=== PATIENT | male | born 1970 | race Two or more races ===

== ENCOUNTER → 2020-12-22 | Outpatient (CLI) | payer OTHER ==
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
== END | disposition home or self-care (01) ==
LOC: RADMRIMAIN 18:03
PROVIDERS: ATTEND Orthopaedic Surgery Orthopaedic Surgery of the Spine
DX: M50.222 Other cervical disc displacement at C5-C6 level (principal); M75.112 Incomplete rotator cuff tear or rupture of left shoulder, not specified as traumatic; M65.9 Synovitis and tenosynovitis, unspecified
CPT/HCPCS: 72141